=== PATIENT | female | born 1950 | race Hispanic/Latino ===

== ENCOUNTER 2016-12-01 19:42 | Emergency (ER) | payer BC ==
[~2016-12-01] VITALS: Ht 154.9 cm; Wt 81.7 kg
[~2016-12-01 19:42] MED LIST: ASPIR-LOW81 MG PO; ATENOLOL25 MG PO; GLUCOPHAGE1000 MG PO; KEFLEX500 MG PO; LIPITOR10 MG PO; LISINOPRIL10 MG; PRINIVIL10 MG PO; ZOFRAN ODT4 MG PO
[2016-12-01] MEDS ORDERED: CEPHALEXIN500 MG PO (23:12)
--- NOTE | 2016-12-02 | EKG ---
[facility] [address] [facility] [place], [place] [address] Signed Sinus tachycardia Otherwise normal ECG No previous ECGs available Confirmed by SUSHMA MIRANDA MD ([id number]) on 12/02/2016 12:00:31 AM Electronically Signed By: SUSHMA MIRANDA MD 12/02/16 0000 PATIENT NAME: JACK HAMPTONA Electrocardiogram DATE OF : 48 PHYSICIAN: SUSHMA MIRANDA MD REPORT #: [id number] REPORT IS CONFIDENTIAL AND NOT TO BE RELEASED WITHOUT AUTHORIZATION
== END 2016-12-01 23:33 | disposition home or self-care (01) ==
LOC: ED 19:42
DX: N39.0 Urinary tract infection, site not specified (principal); E11.9 Type 2 diabetes mellitus without complications; I10 Essential (primary) hypertension; Z79.899 Other long term (current) drug therapy; Z79.84 Long term (current) use of oral hypoglycemic drugs; Z79.82 Long term (current) use of aspirin
CPT/HCPCS: 71010; 80053; 81001; 83605; 84484; 85025; 87040; 87077; 87088; 87186; 93005; 93010; 96361; 96374; 96375; 99283; J0696; J1885; J2405; J7030

== ENCOUNTER 2016-12-03 10:22 | Emergency (ER) | payer BC ==
[~2016-12-03] VITALS: Ht 154.9 cm; Wt 81.7 kg
[~2016-12-03 10:22] MED LIST changes: +CEPHALEXIN500 MG PO
[2016-12-03] MEDS ORDERED: CIPRO500 MG PO ×3 (14:40→14:43)
== END 2016-12-03 15:08 | disposition home or self-care (01) ==
LOC: ED 10:22
PROC: 0T9B70Z Drainage of Bladder with Drainage Device, Via Natural or Artificial Opening (ICD-10-PCS; principal; 2016-12-03)
DX: N12 Tubulo-interstitial nephritis, not specified as acute or chronic (principal); I10 Essential (primary) hypertension; E11.9 Type 2 diabetes mellitus without complications; Z79.899 Other long term (current) drug therapy; Z79.84 Long term (current) use of oral hypoglycemic drugs; Z79.82 Long term (current) use of aspirin
CPT/HCPCS: 51701; 80053; 81001; 83605; 85025; 87040; 87088; 96361; 96365; 96366; 96375; 99283; J1170; J1956; J2405; J2550; J7030

== ENCOUNTER 2021-05-23 10:04 | Inpatient (IN) | payer OTHER ==
[~2021-05-23] VITALS: Ht 154.9 cm; Wt 76.8 kg
[~2021-05-23 10:04] MED LIST changes: +CIPRO500 MG PO
--- OUTSIDE RECORDS SUMMARY | 2021-05-23 10:14 | XMS ---
PreManage Notification: NATALIE HAMPTON Security Warehouse Order Picker Events No recent Security Events currently on file CRITERIA MET - Group Notification CARE PROVIDERS GEORGIE GRACIA Physician Pulmonologist Intensivist: Medical Current PHONE: Unknown Siomara has no Care Guidelines for this patient. EEileen VISIT COUNT (12 MO.) 1 CRAIG Moses TOTAL 1 NOTE: Visits indicate total known visits. ED/UCC VISIT TRACKING (12 MO.) 05/23/2021 10:07 CRAIG Sarmiento OR TYPE: Emergency COMPLAINT: - NAUSEATED INPATIENT VISIT TRACKING (12 MO.) No inpatient visits to display in this time frame [email or web address]
[2021-05-23] MEDS ORDERED: AMLODIPINE BES2.5 MG PO (10:36)
[2021-05-23] MEDS ORDERED: GLIPIZIDE5 MG PO (10:37)
[2021-05-23] MEDS ORDERED: LOSARTAN POTASS50 MG PO (10:38)
[2021-05-23] MEDS ORDERED: AMLODIPINE BESYL5 MG PO ×2 (13:23→15:26)
--- NOTE | 2021-05-23 14:50 | NUR ---
REPORT RECIEVED FROM NETWORK SOLUTIONS ARCHITECTKATHY ARTEAGA. PT TRANSPORTED TO CCU VIA STRETCHER ON WET WASHER MACHINE AND 5 L OM. PT'S DAUGHTER AND ARE AT BEDSIDE.
--- NOTE | 2021-05-23 15:34 | NUR ---
ASSESSMENT COMPLETED. PT ALERT AND ORIENTED, DAUGHTER INTERPRETING FOR PT. PT REPORTS DISCOMFORT WITH INSPIRATION AND MILD SHORTNESS OF BREATH. SHE REPORTS DULL ABDOMINAL PAIN, WITH TENDERNESS UPON PALPATION. PT REPORT FEELING COLD, AND GENERALIZED WEAKNESS. LUNGS ARE DIMINISHED IN BILATERAL BASES. PT HAS 3L OM, WITH SPO2 = 96% RESPIRATIONS ARE LABORED, RR = 30. URINE IN RUBIN CATHETER IS LIGHT YELLOW IN COLOR. DISCUSSED PLAN OF CARE WITH FAMILY, ALL QUESTIONS ANSWERED. CALL LIGHT WITHIN REACH. WILL CONTINUE TO MONITOR.
--- NOTE | 2021-05-23 15:44 | NUR ---
Spoke with pt, daughter, and spouse. Daughter answers and interprets questions as pt is not feeling well. Pt, spouse, and daughter live in [place]. Pt does not use any DME. Live in a 1 story home without steps. Pt uses the [facility]. Daughter denies needs and states pt is an active person. She does not use any DME. Spouse denies needs for pt to go home when she is cleared medically.
--- NOTE | 2021-05-23 16:29 | NUR ---
PT'S HEART RATE IS IN THE 80-90 AT REST. RESPIRATIONS AT 22 BREATHS PER MINUTE. SPO2 = 94% ON 3 L OM. PT ASLEEP AT THIS TIME. DAUGHTER AND AT BEDSIDE. DENY FURTHER NEEDS AT THIS TIME.
--- NOTE | 2021-05-23 18:33 | NUR ---
PT ABLE TO EAT SOME OF DINNER. NO NAUSEA OR DISCOMFORT. PT SPO2 DOWN TO 88 ON ROOM AIR, PLACED BACK ON 3 L OM. SPO2 = 93% AT THIS TIME. HEART RATE IN THE 80S. AT BEDSIDE. CALL LIGHT WITH REACH. WILL CONTINUE TO MONITOR.
--- NOTE | 2021-05-23 19:36 | NUR ---
RECIEVED REPORT FROM DAY SHIFT RN, FOCUSED ASSESSMENT COMPLETED, LABS, ORDERS, EMAR REVIEWED, HEAD TO TOE ASSESSMENT COMPLETED, PT IS ALGERIAN SPEAKING ONLY, FAMILY AT BEDSIDE TO ASSIST WITH TRANSLATION, PT C/O ABD TENDERNESS WHEN PALPATED, DENIES PAIN OTHERWISE, NO CURRENT NEEDS FROM PT OR FAMILY AT THIS TIME, WILL CONTINUE TO ROUND ON PT
--- NOTE | 2021-05-24 01:39 | NUR ---
O2 TUBING BECAME DISCONNECTED, O2 SATs 85% ON RA. TUBING REATTACHED TO OXYGEN. SATs IMPROVED TO 92%.
--- NOTE | 2021-05-24 02:42 | NUR ---
PT RESTING COMFORTABLY, DENIES PAIN OTHER THAN WITH ABD PALPATION, REMAINS ON 3 L O2 OXYMASK, HUSABND SLEEPING AT BEDSIDE, RUBIN DRAINING YELLOW URINE, GOOD URINE OUTPUT, LR GTT INFUSING. WILL CONTINUE TO MONITOR AND ALLOW OPTIMAL REST
--- NOTE | 2021-05-24 05:44 | NUR ---
PT HAD UNEVENTFUL NIGHT, DENIES PAIN OTHER THAN WITH ABD PALPATION, LR GTT REMAINS INFUSING, RUBIN DRAINING YELLOW URINE WITH SEDIMENT, GOOD URINE OUTPUT THROUGHOUT NIGHT, VITALS WNL, NO IMMEDIATE CONCERNS
--- NOTE | 2021-05-24 07:30 | NUR ---
REPORT RECIEVED. SOMEWHAT RESTLESS IN BED.
--- NOTE | 2021-05-24 08:00 | NUR ---
Pt smiles and states, "ok" when asked how she is feeling. No plan for dc today.
--- NOTE | 2021-05-24 08:04 | NUR ---
PATIENT AWAKE IN BED, IN ROOM. GLUCOSE CHECKED, VITALS AND I&OS CHARTED. RUBIN EMPTIED. CALL LIGHT IN REACH
--- NOTE | 2021-05-24 10:10 | NUR ---
DR. MIRANDA HERE TO SEE PATIENT. ORDERS RECIEVED. PATIENT IN RESTING WITH HOB ELEVATED.
--- NOTE | 2021-05-24 10:20 | NUR ---
IVF DC'D PER ORDERS.
--- NOTE | 2021-05-24 10:30 | NUR ---
OUT BED TO CHAIR. INSTRUCTION ON I.S. GIVEN IN GEORGIAN VIA YOUTUBE VIDEO. HAS POOR TECHNIQUE. HAS OCC DRY COUGH. IS IN ROOM.
--- NOTE | 2021-05-24 11:13 | NUR ---
DR. MIRANDA NOTIFIED OF POSTITIVE BLOOD CULTURE RESULTS OF GRAM NEG RODS IN AEROBIC AND ANAEROBIC BOTTLE, DRAWN FROM LEFT AC ON 05/23/21 AT 1045. REPEAT BLOOD CULTURE ORDER WILL BE PLACED PER DR. MIRANDA.
[2021-05-24] MEDS ORDERED: TRESIBA FL100 UNIT/1 SUB-Q (11:25)
--- NOTE | 2021-05-24 11:25 | NUR ---
2PA TRANSFER TO CHAIR FROM BED. IN ROOM. PATIENT AND SOMEWHAT PAINFUL BUT TOLERATED WELL. LINEN CHANGED. RN MARYBEL EDUCATING PATIENT ON "IS" USE. CALL LIGHT IN EASY REACH. LAB IN ROOM AT THIS TIME
[2021-05-24] MEDS ORDERED: KETOCONAZOLE15 GM TOP (11:30)
--- NOTE | 2021-05-24 12:00 | NUR ---
ECHO BEING DONE AT BEDSIDE.
--- NOTE | 2021-05-24 12:22 | NUR ---
PATIENT TRANSFERRED BACK TO BED, 1PA FOR ECHO. PATIENT REFUSED LUNCH BUT ATE JELLO. CAREGIVER LUNCH TRAY GIVEN TO WELL. RUBIN EMPTIED. AND CHARTED.
--- NOTE | 2021-05-24 17:33 | NUR ---
MED REC COMPLETE
--- NOTE | 2021-05-24 18:30 | NUR ---
LAB HERE TO DRAW BLOOD. PATIENT IS RESTING WITH HOB ELEVATED WATCHING TV.
--- NOTE | 2021-05-24 19:15 | NUR ---
NO CHANGES, REPORT TO SHELLFISH SORTER.
--- NOTE | 2021-05-24 22:55 | NUR ---
PT RESTING COMFORTABLY IN BED, AT BEDSIDE WITH PT, GOOD URINE OUTPUT, RUBIN DRAINING LIGHT YELLOW URINE WITH SEDIMENT, IV SALINE LOCKED, NO IMMEDIATE CONCERNS, WILL CONTINUE TO ALLOW PT TO REST
--- NOTE | 2021-05-24 23:31 | NUR ---
CONCERNED ABOUT PT NOT COMMUNICATING NEEDS DUE TO LANGUAGE BARRIER. RN ENTERED ROOM TO CHECK URINE OUTPUT, PT MOVING AND RESTLESS IN BED, RN ASKED PT "DOLOR" WHILE POINTING TO BODY SYSTEMS. PT NODS HEAD YES AND POINTED TO HER LOW BACK AND ABD. PT REPOSITIONED AND PAIN MEDICATION PROVIDED, SEE MAR.
--- NOTE | 2021-05-25 00:46 | NUR ---
PT RESTING, NO LONGER C/O PAIN, PTS HUSBANDS STATES SHE SAYS SHES COLD, WARM BLANKET APPLIED
--- NOTE | 2021-05-25 07:23 | NUR ---
REPORT RECIEVED, CARE OF PT ASSUMED AT THIS TIME. PT SPO2 = 97%, CALL LIGHT AYDENSOURAV MIRAMONTES. WILL CONTINUE TO MONITOR
--- NOTE | 2021-05-25 08:26 | NUR ---
ASSESSMENT COMPLETED. PT GIVEN ONE UNIT OF INSULIN PER SLIDING SCALE AND IS NOW EATING BREAKFAST. IV CEFEPIME INFUSING. PT DENIES PAIN OR DISCOMFORT AT THIS TIME. ASSISTED WITH REPOSITIONING IN THE BED. AT BEDSIDE, CALL LIGHT WITHIN REACH. WILL CONTINUE TO MONITOR.
--- NOTE | 2021-05-25 09:11 | NUR ---
TOOK BREAKFAST WELL. DENIES PAIN. IN ROOM. PATIENT IS W/O C/O.
--- NOTE | 2021-05-25 10:00 | NUR ---
OOB TO CHAIR. TRANSFERS FAIR WITH ASSIST. DENIES ABD PAIN OR BACK PAIN.
--- NOTE | 2021-05-25 12:02 | NUR ---
DR MIRANDA IN ROOM TO ASSESS PT. USING IT SUPPORT SPECIALIST LINE. PT DENIES PAIN OR SHORTNESS OF BREATH. STATES MILD NAUSEA AT TIMES.
--- NOTE | 2021-05-25 12:23 | NUR ---
Telemetry and Iram Roberson at this time.
--- NOTE | 2021-05-25 14:45 | NUR ---
REPORT CALLED TO TYRESE ON THE MEDICAL FLOOR. PT TRANSPORTED TO MEDICAL FLOOR IN THE CHAIR. ALL BELONGINGS TRANSPORTED WITH PT.
--- NOTE | 2021-05-25 15:03 | NUR ---
Patient arrived to the medical floor at this time, no ditress. Patient is alert and oriented x4. Patient denies pain and or need. Pt's at bedside. Oriented pt to room and call light. No current needs. Personal supplies and call light within reach.
--- NOTE | 2021-05-25 16:30 | NUR ---
Dr. Pulido notified regarding elevated bp. New order placed for nicardipine po.
--- NOTE | 2021-05-25 18:00 | NUR ---
Patient vomited x1, small amount of clear emesis noted on gown. Pt's daughter reported her mother vomited prior to eating her dinner. Cool clother provided. Patient declining medicaiton for nausea.
--- NOTE | 2021-05-25 19:39 | NUR ---
RECEIVED REPORT FROM DAY SHIFT RN. PATIENT IS RESTING IN BED. AT THE BEDSIDE. NO NEEDS NOTED. CALL LIGHT IN REACH.
--- NOTE | 2021-05-25 22:00 | NUR ---
IN WITH RN TO GET VITALS, ACCU-CHECK (see eMAR), FRESH ICE WATER GIVEN
--- NOTE | 2021-05-25 22:30 | NUR ---
PATIENT ASSESMENT COMPLETED. VITALS TAKEN AND RECORDED. PATIENTS SCHEDULED MEDICATIONS GIVEN PER ORDER. PATIENT DENIES ANY PAIN OR NAUSEA. PATIENTS INTAKE AND OUTPUT RECORDED. FRESH ICE WATER PROVIDED. PATIENTS IVS X2 FLUSHED AND SL PER ORDER. PATIENT DENIES ANY NEEDS. CALL LIGHT IN REACH.
--- NOTE | 2021-05-25 23:16 | NUR ---
PATIENT PLACED ON 2L VIA NC. PATIENT DENIES ANY NEEDS. CALL LIGHT IN REACH. ASLEEP ON COUCH.
--- NOTE | 2021-05-26 00:33 | NUR ---
PATIENT IS RESTING IN BED WITH EYES CLSOED, RR 16. CALL LIGHT IN REACH.
--- NOTE | 2021-05-26 02:29 | NUR ---
PATIENT UP TO RESTROOM WITH . PATIENT ABLE TO VOID. PATIENT REMOVED HAT FROM TOILET. EDUCATED PATIENT AND ABOUT THE IMPORTANCE OF MEASURING OUTPUT. PATIENT AND VERBALIZE UNDERSTANDING. NO NEEDS NOTED. CALL LIGHT IN REACH.
--- NOTE | 2021-05-26 05:28 | NUR ---
PATIENTS VITALS TAKEN AND RECORDED BY ANABELLE DOS SANTOS. PATIENT UP TO VOID. PATIENT BACK IN BED RESTING. PATIENT DENIES ANY NEEDS. CALL LIGHT IN REACH.
--- NOTE | 2021-05-26 07:13 | NUR ---
Bedside shift report completed at the door due to patient and her are sleeping. The patient is on her left side covered with blankets apppearing to be resting in no acute distress. She is amharic speaking mostly, very few Haitian words, her translates for her. Her wilkes was removed 05/25 and her IV fluids stopped as well 05/25. We will continue to monitor her closely and continue to reinforce the importance of monitoring her intake and output. She continues at this time and IV antibiotics.
--- NOTE | 2021-05-26 08:54 | NUR ---
Breakfast just arrived, at bedside to assist with translation. IV flushed and IV antibiotic started. Patient elevated to 45 degrees in bed for breakfast
--- NOTE | 2021-05-26 09:03 | NUR ---
Patient verbalizes she has no nausea, no pain. Patient is eating at this, her assessment will be completd after she eats. at bedside. New medication was given, and discussed with and the patient ( translated)
--- NOTE | 2021-05-26 10:05 | NUR ---
OFFERED THE BATHROOM X 2 PT REFUSED, DENIES NEED TO VOID
--- NOTE | 2021-05-26 10:08 | NUR ---
Patient assessment completed. No needs at this time.
--- NOTE | 2021-05-26 11:30 | NUR ---
patient and resting. request to let her sleep
--- NOTE | 2021-05-26 11:44 | NUR ---
Dr Pulido at bedside, translation line being used. Blood sugar noted to be 304, will cover with lunch. Per the patient she hasnt had a BM in a week. MD to prescribe laxative
--- NOTE | 2021-05-26 12:15 | NUR ---
PT UP TO CHAIR FOR LUNCH. LINENS CHANGED, PROVIDED PT WITH NEW GOWN. CALL LIGHT WITHIN REACH, NO ASSISTANCE NEEDED AT THIS TIME.
--- NOTE | 2021-05-26 13:13 | NUR ---
Patient up to the bathroom with the assist of the FINANCIAL COMPLIANCE OFFICER.
--- NOTE | 2021-05-26 14:18 | NUR ---
ASSISTED PT BACK TO BED, PT DECLINED BR
--- NOTE | 2021-05-26 14:51 | NUR ---
patient in bed at this time. reports no pain. 1500 medication given and assessment completed
--- NOTE | 2021-05-26 15:30 | NUR ---
Patient and resting at this time, resp 17, no acute distress noted.
--- NOTE | 2021-05-26 16:06 | NUR ---
Daughter at bedside requesting to give her a taco for dinner, POC glucose 267, will cover her appropritely with insulin.
--- NOTE | 2021-05-26 16:25 | NUR ---
1700 medications given, Water refilled. Daughter and at bedside. Patient had a taco that her daugher brought
--- NOTE | 2021-05-26 17:26 | NUR ---
Patient alone in her room at this time. She is rest and states no needs
--- NOTE | 2021-05-26 18:20 | NUR ---
at bedside, patient in her bed. Watching TV, water has been refreshed by the SUPERVISOR DRY CLEANING, redemonstrated the IS.
--- NOTE | 2021-05-26 19:15 | NUR ---
RECEIVED REPORT FROM DAY SHIFT RN. PT LAYING IN BED IN NO ACUTE DISTRESS. RESP EVEN AND UNLABORED. CALL LIGHT WITHIN REACH WILL CONTINUE TO MONITOR.
--- NOTE | 2021-05-26 21:00 | NUR ---
ASSESSMENT DONE, PT CROATIAN SPEAKING REPORTS NO CONCERNS. EDUCATED PT ON GETTING UP DURING DAY AND SITTING UN CHAIR. PT REPORTS HAS BEEN UP BUT FEELS DIZZY AT TIMES. FAMILY MEMEMBER AT BEDSIDE HOPING TO GO HOME IN THE AM. RESP EVEN AND UNLABORED. CALL LIGHT WITHIN REACH .
--- NOTE | 2021-05-26 21:18 | NUR ---
IN TO ASSIST RN WITH VITALS, ACCU-CHECK DONE, NO FURTHER NEEDS AT THIS TIME
--- NOTE | 2021-05-27 00:27 | NUR ---
PT LAYING IN BED IN NO ACUTE DISTRESS. PT AWAKE REPORTS NO CONCERNS. RESP EVEN AND UNLABORED, CALL LIGHT WITHIN REACH WILL CONTINUE TO MONITOR.
--- NOTE | 2021-05-27 03:20 | NUR ---
PT LAYING IN BED IN NO ACUTE DISTRESS. PT AWAKE DENIES ANY PAIN OR ANY CONCERNS. RESP EVEN AND UNLABORED. CALL LIGHT WITHIN REACH . WILL CONTINUE TO MONITOR.
--- NOTE | 2021-05-27 07:39 | NUR ---
Patient laying in bed with her eye opens, on the couch, no tv on. Assessment completed, needs checked, refill her water at patient request.
--- NOTE | 2021-05-27 08:44 | NUR ---
Patient sitting up for breakfast, gave AM medications, flushed RAC IV access, now IV antibiotic is infusing. Flushed LAC IV access without issues. No needs at this time. Updated and patient on WBC.
--- NOTE | 2021-05-27 10:00 | NUR ---
patient laying on left side, talking with her , breakfast tray removed. She completed about 75% of breakfast and had 480 fluid intake.
[2021-05-27] MEDS ORDERED: CIPROFLOXACIN500 MG PO (10:47)
[2021-05-27] MEDS ORDERED: AMLODIPINE BESY10 MG PO (10:48)
[2021-05-27] MEDS ORDERED: CARVEDILOL6.25 MG PO (10:48)
--- NOTE | 2021-05-27 11:05 | NUR ---
updated the daughter on the phone of upcoming discharge, and that the discharge instruction can be printed in armenian, and she advised of doing that and then she can also go over the discharge with them at home. is asking about financial assistance, information will be provided as approriate.
--- NOTE | 2021-05-27 12:07 | NUR ---
Pharmacy discussed with the patient, her and the translation line her home medications upon discharge. Her lunch insulin dose was given (3 Units). Discharge to happen by 1300, after IV antibiotic completes
--- NOTE | 2021-05-27 13:10 | NUR ---
IV access removed, pressure dressing applied, discharge instructions discussed and packet given.
== END 2021-05-27 13:45 | disposition home or self-care (01) | DRG 871 ==
LOC: ED 10:04 → MS 14:12 → CCU 14:12 → MS 05-25 15:00
PROVIDERS: ADMIT Internal Medicine; ATTEND Internal Medicine
DX: A41.51 Sepsis due to Escherichia coli [E. coli] (principal); J96.01 Acute respiratory failure with hypoxia; I50.33 Acute on chronic diastolic (congestive) heart failure; N17.0 Acute kidney failure with tubular necrosis; N13.6 Pyonephrosis; I13.0 Hypertensive heart and chronic kidney disease with heart failure and stage 1 through stage 4 chronic kidney disease, or unspecified chronic kidney disease; Z20.822 Contact with and (suspected) exposure to COVID-19; R65.20 Severe sepsis without septic shock; N18.32 Chronic kidney disease, stage 3b; J98.4 Other disorders of lung; D63.1 Anemia in chronic kidney disease; E11.22 Type 2 diabetes mellitus with diabetic chronic kidney disease; K81.1 Chronic cholecystitis; D35.01 Benign neoplasm of right adrenal gland; E78.5 Hyperlipidemia, unspecified; Z79.84 Long term (current) use of oral hypoglycemic drugs; Z79.899 Other long term (current) drug therapy; Z79.82 Long term (current) use of aspirin
CPT/HCPCS: 36415; 51701; 51702; 71045; 74176; 80048; 80053; 81001; 82803; 83036; 83605; 83735; 83880; 85025; 87040; 93306; 94760; 99285-25; A9270; C9803; J0456; J0692; J1650; J1815; J2405; J7060; J7121; U0003

== ENCOUNTER 2022-06-11 08:38 | Emergency (ER) | payer OTHER ==
[~2022-06-11] VITALS: Ht 154.9 cm; Wt 76.8 kg
[~2022-06-11 08:38] MED LIST changes: +AMLODIPINE BES2.5 MG PO; +AMLODIPINE BESY10 MG PO; +AMLODIPINE BESYL5 MG PO; +CARVEDILOL6.25 MG PO; +CIPROFLOXACIN500 MG PO; +GLIPIZIDE5 MG PO; +KETOCONAZOLE15 GM TOP; +LOSARTAN POTASS50 MG PO; +TRESIBA FL100 UNIT/1 SUB-Q
--- OUTSIDE RECORDS SUMMARY | 2022-06-11 08:40 | XMS ---
PreManage Notification: NATALIE HAMPTON Security Supervisor Byproducts Events No recent Security Events currently on file CRITERIA MET - Group Notification [facility] PHONE: Unknown Siomara has no Care Guidelines for this patient. EEileen VISIT COUNT (12 MO.) 1 [place] [id number] CRAIG Moses TOTAL 2 NOTE: Visits indicate total known visits. ED/UCC VISIT TRACKING (12 MO.) 06/11/2022 08:38 [facility] S[facility]iento OR TYPE: Emergency COMPLAINT: - EXTERMITY PAIN/INJURY 12/09/2021 00:22 [facility] [place] TYPE: Emergency DIAGNOSES: - Hyperglycemia, unspecified - Chronic kidney disease, stage 4 (severe) - Unspecified convulsions - SEIZURE INPATIENT VISIT TRACKING (12 MO.) No inpatient visits to display in this time frame [email or web address]
[2022-06-11] MEDS ORDERED: LEVETIRACETAM250 MG PO (08:56)
[2022-06-11] MEDS ORDERED: FARXIGA5 MG PO (08:56)
[2022-06-11] MEDS ORDERED: LOSARTAN POTASS25 MG PO (08:56)
[2022-06-11] MEDS ORDERED: HYDROCODON-ACE1 EA10 PO (10:04)
== END 2022-06-11 10:19 | disposition home or self-care (01) ==
LOC: ED 08:38
DX: M25.531 Pain in right wrist (principal); E11.9 Type 2 diabetes mellitus without complications; I10 Essential (primary) hypertension; Z79.899 Other long term (current) drug therapy; Z79.4 Long term (current) use of insulin
CPT/HCPCS: 36415; 73110; 80053; 85025; 85651; 86140; 99283-25